=== PATIENT | female | born 1995 | race Hispanic/Latino ===

== ENCOUNTER → 2020-01-11 | Outpatient (CLI) | payer BC ==
[~2020-01-11] MED LIST: IOHEXOL-350 75 ML VIAL IV ONE
== END | disposition home or self-care (01) ==
LOC: RAH 09:45
PROVIDERS: ATTEND Internal Medicine Cardiovascular Disease
DX: Q25.1 Coarctation of aorta (principal); Q96.9 Turner's syndrome, unspecified; Q25.49 Other congenital malformations of aorta; J98.11 Atelectasis
CPT/HCPCS: 71275; Q9967